=== PATIENT | male | born 1955 | race Caucasian/White ===

== ENCOUNTER 2016-11-13 06:37 | Day surgery (SDC) | payer BC ==
[~2016-11-13] VITALS: Ht 172.7 cm; Wt 69.9 kg
[~2016-11-13 06:37] MED LIST: ATIVAN0.5 MG PO; CYMBALTA30 MG PO; CYMBALTA60 MG PO; HYDROCODON-ACE1 EAC7 PO; LIPITOR10 MG PO; MOBIC15 MG PO; NEURONTIN100 MG PO; PROBIOTIC1 EAC1 PO
== END 2016-11-13 10:19 | disposition home or self-care (01) ==
LOC: PAIN 06:37 → SDC 08:45 → PAIN 08:45
DX: M47.897 Other spondylosis, lumbosacral region (principal); M54.42 Lumbago with sciatica, left side; G89.29 Other chronic pain; F41.1 Generalized anxiety disorder; M54.2 Cervicalgia; M19.90 Unspecified osteoarthritis, unspecified site; E78.5 Hyperlipidemia, unspecified; Z88.0 Allergy status to penicillin; F17.200 Nicotine dependence, unspecified, uncomplicated
CPT/HCPCS: J1030; J2250; J3010; S0020

== ENCOUNTER 2016-11-20 07:16 | Day surgery (SDC) | payer BC ==
[~2016-11-20] VITALS: Ht 170.2 cm; Wt 69.8 kg
== END 2016-11-20 09:25 | disposition home or self-care (01) ==
LOC: PAIN 07:16 → SDC 08:00 → PAIN 08:00
PROC: 015B3ZZ Destruction of Lumbar Nerve, Percutaneous Approach (ICD-10-PCS; principal; 2016-11-20)
DX: M47.816 Spondylosis without myelopathy or radiculopathy, lumbar region (principal); M54.5 Low back pain; F41.9 Anxiety disorder, unspecified; F17.200 Nicotine dependence, unspecified, uncomplicated; M51.36 Other intervertebral disc degeneration, lumbar region; G89.29 Other chronic pain; M54.2 Cervicalgia; M47.812 Spondylosis without myelopathy or radiculopathy, cervical region; M19.90 Unspecified osteoarthritis, unspecified site; G56.21 Lesion of ulnar nerve, right upper limb; Z88.0 Allergy status to penicillin; Z88.2 Allergy status to sulfonamides
CPT/HCPCS: J1030; J2250; J3010; S0020

== ENCOUNTER 2017-04-14 06:55 | Day surgery (SDC) | payer BC ==
[~2017-04-14 06:55] MED LIST changes: +LIPITOR20 MG PO; +NEURONTIN300 MG PO
== END 2017-04-14 08:48 | disposition home or self-care (01) ==
LOC: PAIN 06:55 → SDC 07:30 → PAIN 08:48
DX: M47.812 Spondylosis without myelopathy or radiculopathy, cervical region (principal); M54.2 Cervicalgia; G89.29 Other chronic pain; M54.5 Low back pain; M51.36 Other intervertebral disc degeneration, lumbar region; M19.011 Primary osteoarthritis, right shoulder; G56.21 Lesion of ulnar nerve, right upper limb; M47.816 Spondylosis without myelopathy or radiculopathy, lumbar region; E78.5 Hyperlipidemia, unspecified; Z85.46 Personal history of malignant neoplasm of prostate; F17.210 Nicotine dependence, cigarettes, uncomplicated; Z88.0 Allergy status to penicillin; Z88.2 Allergy status to sulfonamides; Z87.891 Personal history of nicotine dependence
CPT/HCPCS: J1030; J2250; J3010; S0020

== ENCOUNTER 2017-04-21 06:55 | Day surgery (SDC) | payer BC ==
[~2017-04-21] VITALS: Ht 172.7 cm; Wt 68.0 kg
== END 2017-04-21 08:33 | disposition home or self-care (01) ==
LOC: PAIN 06:55 → SDC 07:30 → PAIN 07:30
DX: M47.812 Spondylosis without myelopathy or radiculopathy, cervical region (principal); M54.2 Cervicalgia; G89.29 Other chronic pain; M51.16 Intervertebral disc disorders with radiculopathy, lumbar region; M47.26 Other spondylosis with radiculopathy, lumbar region; Z79.891 Long term (current) use of opiate analgesic; F41.8 Other specified anxiety disorders; Z85.46 Personal history of malignant neoplasm of prostate; F17.210 Nicotine dependence, cigarettes, uncomplicated; Z88.0 Allergy status to penicillin; Z88.2 Allergy status to sulfonamides
CPT/HCPCS: J1030; J2250; J3010; S0020

== ENCOUNTER 2017-10-26 06:28 | Day surgery (SDC) | payer BC ==
[~2017-10-26] VITALS: Ht 172.7 cm; Wt 68.0 kg
[~2017-10-26 06:28] MED LIST changes: -HYDROCODON-ACE1 EAC7 PO; +HYDROCODON-ACE1 EAC9 PO
== END 2017-10-26 08:30 | disposition home or self-care (01) ==
LOC: PAIN 06:28 → SDC 07:30 → PAIN 08:30
DX: M47.816 Spondylosis without myelopathy or radiculopathy, lumbar region (principal); M47.812 Spondylosis without myelopathy or radiculopathy, cervical region; G89.29 Other chronic pain; M51.36 Other intervertebral disc degeneration, lumbar region; M19.90 Unspecified osteoarthritis, unspecified site; F17.200 Nicotine dependence, unspecified, uncomplicated; Z88.0 Allergy status to penicillin
CPT/HCPCS: J1030; J2250; J3010; S0020

== ENCOUNTER 2017-11-30 07:55 | Day surgery (SDC) | payer BC ==
[~2017-11-30] VITALS: Ht 170.2 cm; Wt 68.0 kg
[~2017-11-30 07:55] MED LIST changes: -LIPITOR20 MG PO
== END 2017-11-30 09:38 | disposition home or self-care (01) ==
LOC: PAIN 07:55
DX: M47.816 Spondylosis without myelopathy or radiculopathy, lumbar region (principal); M51.36 Other intervertebral disc degeneration, lumbar region; G89.29 Other chronic pain; M19.90 Unspecified osteoarthritis, unspecified site; Z85.46 Personal history of malignant neoplasm of prostate; F17.200 Nicotine dependence, unspecified, uncomplicated
CPT/HCPCS: J1030; J2250; J3010; S0020

== ENCOUNTER 2018-05-10 07:27 | Day surgery (SDC) | payer BC ==
[~2018-05-10] VITALS: Ht 172.7 cm; Wt 69.9 kg
[~2018-05-10 07:27] MED LIST changes: -NEURONTIN300 MG PO
== END 2018-05-10 09:08 | disposition home or self-care (01) ==
LOC: PAIN 07:27 → SDC 08:00 → PAIN 09:08
PROC: BR141ZZ Fluoroscopy of Cervical Facet Joint(s) using Low Osmolar Contrast (ICD-10-PCS; principal; 2018-05-10)
PROC: 3E0T3TZ Introduction of Destructive Agent into Peripheral Nerves and Plexi, Percutaneous Approach (ICD-10-PCS; principal; 2018-05-10)
DX: M47.812 Spondylosis without myelopathy or radiculopathy, cervical region (principal); R29.898 Other symptoms and signs involving the musculoskeletal system; M19.90 Unspecified osteoarthritis, unspecified site; F17.200 Nicotine dependence, unspecified, uncomplicated
CPT/HCPCS: J1030; J2250; J3010; S0020

== ENCOUNTER 2018-05-17 07:57 | Day surgery (SDC) | payer BC ==
[~2018-05-17] VITALS: Ht 172.7 cm; Wt 70.2 kg
[~2018-05-17 07:57] MED LIST changes: +ATORVASTATIN CA20 MG PO
== END 2018-05-17 09:24 | disposition home or self-care (01) ==
LOC: PAIN 07:57
DX: M47.812 Spondylosis without myelopathy or radiculopathy, cervical region (principal); G89.29 Other chronic pain; R29.898 Other symptoms and signs involving the musculoskeletal system; M19.90 Unspecified osteoarthritis, unspecified site; F17.200 Nicotine dependence, unspecified, uncomplicated; Z88.0 Allergy status to penicillin; Z88.2 Allergy status to sulfonamides
CPT/HCPCS: J1030; J2250; J3010; S0020